=== PATIENT | female | born 1955 | race Caucasian/White ===

== ENCOUNTER 2019-07-17 12:57 | Outpatient (CLI) | payer OTHER ==
--- NOTE | 2019-07-17 15:12 | MRI ---
MRI LEFT KNEE PERFORMED WITHOUT CONTRAST ENHANCEMENT: Date: 07/17/2019 HISTORY: Knee pain. FINDINGS: The anterior, as well as posterior cruciate ligaments are intact. The lateral meniscus has a normal s hape and appearance. There is a root tear of the posterior horn of the medial meniscus with mild meni scal subluxation. There is some mild medial compartment narrowing also seen associated with this. Medial and lateral collateral ligaments, and iliotibial band regions are normal. There is articular cartilage loss of the patellar articular cartilage. The medial and lateral patella r retinaculum, and quadriceps and patellar tendons are normal. IMPRESSION: Root tear of the posterior horn of the medial meniscus with meniscal protrusion related to loss of ho op strength. POS: [facility]
== END 2019-07-17 12:58 | disposition home or self-care (01) ==
LOC: BICMRI 12:57
PROVIDERS: ATTEND Orthopaedic Surgery
DX: M23.92 Unspecified internal derangement of left knee (principal); S83.242A Other tear of medial meniscus, current injury, left knee, initial encounter

== ENCOUNTER 2019-08-18 06:01 | Outpatient (CLI) | payer OTHER ==
[2019-08-18 15:16] LABS: #Basophils 0.1 thou/uL (0.0-0.2); #Eosinphils 0.3 thou/uL (0.0-0.7); #Lymphocytes 2.8 thou/uL (1.20-3.40); #Monocytes 0.9 thou/uL (0.11-0.59); #Neutrophils 7.2 thou/uL (1.40-6.50); %Basophils 0.6 % (0.0-1.0); %Eosinophils 2.7 % (0.0-10.0); %Lymphocytes 24.5 % (21.0-51.0); %Monocytes 8.3 % (0.0-10.0); %Neutrophils 63.9 % (42.0-75.0); Hemoglobin 13.6 g/dL (12.0-16.0); Mean Corpuscular Hemoglobin 28.1 pg (27.0-31.0); Mean Corpuscular Volume 85.3 fL (78.0-98.0); Mean Platelet Volume 7.6 fL (7.4-10.4); Platelet Count 301 thou/uL (130-400); RBC Distribution Width 14.1 % (11.5-14.5); Red Blood Cell (RBC) Count 4.82 mill/uL (4.20-5.40); White Blood Cell (WBC) Count 11.3 thou/uL (4.8-10.8)
[2019-08-18 15:38] LABS: Anion Gap 13 mmol/L (10-20); BUN (Urea Nitrogen) 24 mg/dL (9.8-20.1); Calc. Creatinine Clearance 0 mL/min (70-130); Calcium 9.5 mg/dL (7.8-10.44); Carbon Dioxide 24 mmol/L (23-31); Chloride 107 mmol/L (98-107); Estimated GFR-MDRD 82; Glucose 85 mg/dL (80-115); Potassium 3.8 mmol/L (3.5-5.1); Sodium 140 mmol/L (136-145)
== END 2019-08-18 06:02 | disposition home or self-care (01) ==
LOC: LABBT 06:01
PROVIDERS: ATTEND Orthopaedic Surgery
DX: Z01.812 Encounter for preprocedural laboratory examination (principal); S83.242A Other tear of medial meniscus, current injury, left knee, initial encounter
CPT/HCPCS: 80048; 85025

== ENCOUNTER 2019-08-21 06:10 | Day surgery (SDC) | payer OTHER ==
[2019-08-18 13:59] VITALS: BMI 33.8
[2019-08-21] MEDS ORDERED: PROPOFOL 20 ML ONE (06:31)
[2019-08-21] MEDS ORDERED: Fentanyl 100 MCG/2 ML VIAL ONE (07:14)
[2019-08-21] MEDS ORDERED: Dexamethasone 4 mg/ml Vial ONE (08:28)
[2019-08-21] MEDS ORDERED: Ondansetron PF 4 MG/2 ML Vial ONE ×2 (08:28→09:31)
[2019-08-21] MEDS ORDERED: PROPOFOL 200 MG/20 ML VIAL ONE (09:31)
[2019-08-21] MEDS ORDERED: Bupivacaine HCl 0.5%/Epinephrine 1:200,000/PF 30 ml Vial ONE (09:31)
[2019-08-21] MEDS ORDERED: Dexamethasone 20 MG/5 ML VIAL ONE (09:31)
[2019-08-21] MEDS ORDERED: Lidocaine 1% PF 5 ML VIAL ONE (09:31)
[2019-08-21] MEDS ORDERED: Lidocaine 2% w/Epinephrine 1:200K 20 ML VIAL ONE (09:31)
--- NOTE | 2019-08-21 09:58 | OP ---
DATE OF PROCEDURE: 08/21/2019 PREOPERATIVE DIAGNOSIS: Medial meniscus tear, left knee. POSTOPERATIVE DIAGNOSIS: Medial meniscus tear, left knee. PROCEDURE PERFORMED: Arthroscopic partial medial meniscectomy. ANESTHESIA: General. ESTIMATED BLOOD LOSS: Minimal. SPECIMENS: None. DRAINS: None. COMPLICATIONS: None. FINDINGS OF SURGERY: Really, no significant arthritis. Large tear involving most of the posterior medial meniscus. Intact lateral compartment and intact ACL. DESCRIPTION OF PROCEDURE: The scope was placed in the lateral portal and probe was placed in the medial portal. I identified the meniscus tear, displaced it to determine its full extent, and then removed the meniscus using basket forceps and smoothed using a 4-0 full-radius resector. I then probed the remaining meniscus, confirmed it was stable. The knee was irrigated, swept the gutters for loose bodies. Knee was then drained. Sterile dressings applied. Job ID: [id number]
== END 2019-08-21 10:50 | disposition home or self-care (01) ==
LOC: SDC 06:10
PROVIDERS: ATTEND Orthopaedic Surgery
PROC: 0SBD4ZZ Excision of Left Knee Joint, Percutaneous Endoscopic Approach (ICD-10-PCS; principal; 2019-08-21)
DX: S83.242A Other tear of medial meniscus, current injury, left knee, initial encounter (principal); Z91.048 Other nonmedicinal substance allergy status
CPT/HCPCS: J0690; J1100; J2405; J2704; J3010